=== PATIENT | male | born 1950 | race Caucasian/White ===

== ENCOUNTER 2021-12-01 18:27 | Emergency (ER) | payer OTHER, MEDICARE, SELFPAY ==
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
[2021-12-01 18:28] VITALS: BP 107/64; PULSE 71; RESP 15; TEMP 36.5; O2SAT 96
--- NOTE | 2021-12-01 18:37 | ECG_ITS ---
Measurements Intervals [place] Rate: 72 P: 67 W[place]: 177 QRS: 66 QRSD: 96 T: 56 QT: 381 QTc: 418 Interpretive Statements SINUS RHYTHM BASELINE ARTIFACT- I, III, AVR, AVL, AVF NORMAL ECG Electronically Signed On 12-01-2021 21:25:25 CDT by Doug Tracey D.O.
[2021-12-01 19:17] VITALS: BP 119/68; PULSE 67; RESP 15; O2SAT 98
--- NOTE | 2021-12-01 19:17 | PC.NURSE ---
Assumed care of pt at this time. Pt alert and upright on stretcher, requesting water. Pt updated on POC
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
[2021-12-01 19:52] LABS: Basophils Absolute Auto 0.1 K/mm3 (0.0-0.1); Basophils Percent Auto 0.7 % (0.2-1.2); Eosinophils Absolute Auto 0.1 K/mm3 (0-0.3); Eosinophils Percent Auto 0.4 % (0-4.4); Hemoglobin 14.1 g/dL (14.0-18.0); Immature Granulocyte Absolute 0.05 K/mm3 (0.00-0.031); Immature Granulocyte Percent A 0.3 % (0-0.5); Lymphocytes Absolute Auto 0.92 K/mm3 (0.9-3.2); Mean Corpuscular HGB Conc 32.8 g/dl (32-36); Mean Corpuscular Hemoglobin 30.5 pg (26-34); Mean Corpuscular Volume 92.9 fl (80-100); Mean Platelet Volume 10.3 fl (7.4-10.4); Monocytes Absolute Auto 1.1 K/mm3 (0.1-0.6); Monocytes Percent Auto 6.9 % (2.6-8.5); Neutrophils Absolute Auto 13.1 K/mm3 (1.3-6.7); Neutrophils Percent Auto 85.7 % (45.5-73.1); Platelet Count Result 281 k/mm3 (150-375); Red Blood Count 4.63 M/mm3 (4.6-6.20); Red Cell Distribution Width 14.5 % (11.5-14.5); White Blood Count 15.3 K/mm3 (4.5-10.0)
[2021-12-01] MEDS: LIDOCAINE, EPINEPHRINE, TETRACAINE VISCOUS SOLN 3 ML (19:58)
[2021-12-01 20:09] LABS: Alanine Aminotransferase 17 U/L (6-50); Alkaline Phosphatase 60 U/L (38-126); Anion Gap 9 mmol/L (8-16); Aspartate Amino Transferase 23 U/L (17-59); Bilirubin,Total 0.5 mg/dL (0.2-1.3); Blood Urea Nitrogen 17 mg/dL (9-20); Calcium 9.7 mg/dL (8.4-10.2); Carbon Dioxide 25 mmol/L (22-30); Chloride 109 mmol/L (98-107); Estimated CRCL calculation 37 ml/min; Estimated Glomerular Filt Rate 43; Glucose 120 mg/dL (65-110); Potassium 4.4 mmol/L (3.4-5.0); Sodium 143 mmol/L (137-145)
[2021-12-01 20:23] LABS: Creatine Kinase 90 U/L (55-170)
[2021-12-01] MEDS: SODIUM CHLORIDE 0.9% IV 500 ML 999 ML IV CONT (20:48)
[2021-12-01 21:02] VITALS: BP 133/67; PULSE 64; RESP 16
[2021-12-01 21:48] VITALS: BP 136/68; PULSE 65; RESP 18; O2SAT 98
== END 2021-12-01 21:49 | disposition home or self-care (01) ==
PROVIDERS: Emergency Provider Emergency Medicine
DX: R55 Syncope and collapse (principal); S01.511A Laceration without foreign body of lip, initial encounter; S51.811A Laceration without foreign body of right forearm, initial encounter; S00.81XA Abrasion of other part of head, initial encounter; W18.39XA Other fall on same level, initial encounter; X30.XXXA Exposure to excessive natural heat, initial encounter
CPT/HCPCS: 12011; 36415; 70450; 80053; 82550; 85025; 93005; 96360; 99284; J7040